=== PATIENT | female | born 1995 | race African-American/Black ===

== ENCOUNTER 2017-01-23 14:24 | Emergency (ER) | payer OTHER ==
[~2017-01-23] VITALS: Ht 177.8 cm; Wt 107.3 kg
--- NOTE | 2017-01-23 14:39 | NUR ---
Salina liang in [facility] - 01/23/17 at 1838 by CHAYO Patient to bed 06.
[2017-01-23 14:40] VITALS: BP 113/68
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
--- NOTE | 2017-01-23 16:41 | NUR ---
Salina liang in [facility] - 01/23/17 at 1837 by CHAYO Patient to bed 06.
--- NOTE | 2017-01-23 16:41 | NUR ---
Patient to bed 06.
[2017-01-23 17:27] LABS: BILIRUBIN,URINE NEGATIVE (NEGATIVE); BLOOD, URINE NEGATIVE (NEGATIVE); COLOR,URINE YELLOW (YELLOW); LEUKOCYTE ESTERASE ,URINE NEGATIVE (NEGATIVE); NITRITE, URINE NEGATIVE (NEGATIVE); PH,URINE 5.5 (5.0-9.0); UGLUCOSE NEGATIVE (NEGATIVE)
[2017-01-23 17:30] LABS: APPEARANCE,URINE HAZY (CLEAR)
[2017-01-23 17:32] LABS: RBC,URINE 0-5 (RARE) /HPF (0-5); WBC,URINE 0-5 (RARE) /HPF (0-5)
[2017-01-23 18:35] VITALS: BP 125/62
--- NOTE | 2017-01-23 18:36 | NUR ---
Patient discharged with v/s stable. Written and verbal after care instructions given and explained. Patient alert, oriented and verbalized understanding of instructions. Ambulatory with steady gait. All questions addressed prior to discharge. ID band removed. Patient advised to follow up with PMD. Rx of DIFLUCAN given. Patient educated on indication of medication including possible reaction and side effects. Opportunity to ask questions provided and answered.
== END 2017-01-23 18:36 | disposition home or self-care (01) ==
LOC: MED 14:24
DX: N76.0 Acute vaginitis (principal)
CPT/HCPCS: 81001; 99283